=== PATIENT | male | born 1960 | race Caucasian/White ===

== ENCOUNTER 2022-05-20 16:07 | Emergency (ER) | payer SELFPAY ==
[2022-05-20 18:05] LABS: HEMOGLOBIN 15.3 gm/dl (14.0-17.5); RED BLOOD COUNT 5.05 M/UL (4.20-5.50); WHITE BLOOD COUNT 8.7 K/UL (4.5-11.0)
== END 2022-05-20 20:20 | disposition short-term general hospital (02) ==
LOC: ER1 16:07
PROVIDERS: Family Medicine
DX: S82.101B Unspecified fracture of upper end of right tibia, initial encounter for open fracture type I or II (principal); S82.251B Displaced comminuted fracture of shaft of right tibia, initial encounter for open fracture type I or II; S82.451B Displaced comminuted fracture of shaft of right fibula, initial encounter for open fracture type I or II; X58.XXXA Exposure to other specified factors, initial encounter; Y92.89 Other specified places as the place of occurrence of the external cause; Y99.0 Civilian activity done for income or pay
CPT/HCPCS: 73590; 80053; 85025; 90471; 90715; 96374; 96375; 96376; 99284; J0690; J2270; J2405